=== PATIENT | male | born 1965 | race Caucasian/White ===

== ENCOUNTER → 2019-01-15 | Outpatient (CLI) | payer BC ==
[2019-01-15 08:50] LABS: ALT 35 U/L (21-72); AST 30 U/L (17-59); Albumin 4.3 g/dL (3.5-5.0); Albumin/Globulin Ratio 1.7; Alkaline Phosphatase 49 U/L (38-126); Anion Gap 7 mmol/L; Blood Urea Nitrogen 15 mg/dL (9-20); Calcium 9.2 mg/dL (8.4-10.2); Carbon Dioxide 26 mmol/L (22-30); Chloride 107 mmol/L (98-107); Cholesterol 179 mg/dL (<200); Globulin 2.6 g/dL; Glucose 138 mg/dL (74-99); HDL Cholesterol 76 mg/dL (40-60); LDL Cholesterol,Calculated 91 mg/dL (0-99); Potassium 4.2 mmol/L (3.5-5.1); Sodium 140 mmol/L (137-145); Total Bilirubin 0.5 mg/dL (0.2-1.3); Total Protein 6.9 g/dL (6.3-8.2); Triglycerides 58 mg/dL (<150)
== END ==
LOC: LABWHC1 08:07
PROVIDERS: ATTEND Internal Medicine Endocrinology, Diabetes & Metabolism
DX: E10.65 Type 1 diabetes mellitus with hyperglycemia (principal)
CPT/HCPCS: 36415; 80053; 80061; 82043; 82570; 84443

== ENCOUNTER → 2020-06-26 | Outpatient (CLI) | payer BC ==
[2020-06-26 17:07] LABS: Hemoglobin A1C 7.4 % (4.0-6.0)
[2020-06-26 18:36] LABS: African American GFR (CKD) 97.8 (60.0-200.0); Albumin/Globulin Ratio 1.82 (1.60-3.17); Anion Gap 8.5 mmol/L (4.00-12.00); Carbon Dioxide 24.5 mmol/L (21.6-31.8); Chol/HDL Ratio 2.09; Globulin 2.2 g/dL (1.6-3.3); LDL Cholesterol,Calculated 74.6 mg/dL (0.0-131.0); Non-African American GFR(CKD) 84.4 (60.0-200.0); Potassium 4.9 mmol/L (3.5-5.5); Total Bilirubin 0.4 mg/dL (0.3-1.2); Total Protein 6.2 g/dL (6.2-8.2); VLDL Calculation 11.4 mg/dL (5.00-40.00)
== END | disposition home or self-care (01) ==
LOC: LABWHC1 07:46
PROVIDERS: ATTEND Internal Medicine Endocrinology, Diabetes & Metabolism
DX: E10.65 Type 1 diabetes mellitus with hyperglycemia (principal)
CPT/HCPCS: 36415; 80053; 80061; 82043; 82570; 83036; 84443

== ENCOUNTER → 2022-03-09 | Outpatient (CLI) | payer BC | END | disposition home or self-care (01) | LOC: LABWHC1 07:48 | PROVIDERS: ATTEND Internal Medicine Endocrinology, Diabetes & Metabolism | DX: Z53.9 Procedure and treatment not carried out, unspecified reason (principal) ==

== ENCOUNTER 2022-05-25 09:31 | Emergency (ER) | payer BC ==
[2022-05-25 09:49] VITALS: BP 130/63; PULSE 55; RESP 20; TEMP 98.3
--- NOTE | 2022-05-25 10:29 | XR ---
EXAMINATION TYPE: XR chest 2V DATE OF EXAM: 05/25/2022 COMPARISON: NONE HISTORY: Injury with pain. TECHNIQUE: Frontal and lateral views of the chest are obtained. FINDINGS: There is no focal air space opacity, pleural effusion, or pneumothorax seen. The cardiac silhouette size is within normal limits. The osseous structures are intact. IMPRESSION: No acute process.
[2022-05-25] MEDS ORDERED: IBUPROFEN 800 MG TAB PO STA (11:07)
--- NOTE | 2022-05-25 11:15 | ED ---
General Adult HPI - General Chief complaint: Recheck/Abnormal Lab/Rx Stated complaint: Rib injury Time Seen by Provider: 05/25/22 10:58 Source: patient, RN notes reviewed, old records reviewed Mode of arrival: ambulatory Limitations: no limitations - History of Present Illness Initial comments: This is a well-appearing 57-year-old male that presents ambulatory to the emergency room with right-sided rib pain. Patient was playing tennis yesterday and fell landing on his right arm and right side. Patient states he continues to have pain on the right side today worse with palpation or deep breathing and is concerned for rib fracture. -: days(s) (1) Location: right (ribs) Radiation: non-radiation Severity scale (1-10): 5 Quality: constant Consistency: constant Improves with: immobilization Worsens with: movement Associated Symptoms: denies other symptoms - Related Data Previous Rx's Medication Instructions Recorded Ibuprofen [Motrin] 600 mg PO Q8HR PRN #30 tab 05/25/22 Lidocaine 5% Patch [Lidoderm] 1 patch TOPICAL DAILY 14 Days #14 05/25/22 patch Allergies Allergy/AdvReac Type Severity Reaction Status Date / Time No Known Allergies Allergy Verified 05/25/22 09:49 Review of Systems ROS Statement: Those systems with pertinent positive or pertinent negative responses have been documented in the HPI. ROS Other: All systems not noted in ROS Statement are negative. Past Medical History Past Medical History: Diabetes Mellitus History of Any Multi-Drug Resistant Organisms: None Reported Additional Past Surgical History / Comment(s): Cardiac stent Past Psychological History: No Psychological Hx Reported Smoking Status: Never smoker Past Alcohol Use History: Occasional Past Drug Use History: None Reported General Exam Limitations: no limitations General appearance: alert, in no apparent distress Head exam: Present: atraumatic Eye exam: Present: normal appearance Neck exam: Absent: tenderness, meningismus Respiratory exam: Present: normal lung sounds bilaterally, other (No bruising noted). Absent: respiratory distress, wheezes, rales, rhonchi, stridor, chest wall tenderness, accessory muscle use Cardiovascular Exam: Present: bradycardia GI/Abdominal exam: Present: soft. Absent: distended, tenderness, rigid Extremities exam: Present: normal capillary refill. Absent: pedal edema Back exam: Present: normal inspection, full ROM. Absent: tenderness, CVA tenderness (R), CVA tenderness (L), rash noted Neurological exam: Present: alert, oriented X3, normal gait Psychiatric exam: Present: normal affect, normal mood Skin exam: Present: warm, dry, normal color, abrasion (Abrasion right elbow) Course Vital Signs 05/25/22 09:46 Temperature 98.3 F Pulse Rate 55 L Respiratory 20 Rate Blood Pressure 130/63 O2 Sat by Pulse 97 Oximetry Medical Decision Making - Medical Decision Making Patient fell yesterday while playing tennis complaining of right sided rib. Chest x-ray negative for any acute rib fracture. No acute pulmonary cardiopulmonary process. Lung sounds are clear and oxygenation is 97%. Patient was given Motrin and a prescription for Lidoderm patches as he states he had difficulty sleeping last night. Directed to return to the emergency room with any new or concerning symptoms. Directed to deep breath and cough throughout the day to prevent pneumonia. He is agreeable to this plan of care. Attending is Dr. Khan Disposition Clinical Impression: Contusion of rib on right side, Abrasion Disposition: HOME SELF-CARE Condition: Good Additional Instructions: Take Motrin as needed for pain. You can use Lidoderm patches as prescribed for topical pain relief. Deep breath and cough throughout the day to prevent pneumonia. Follow-up with the primary care doctor next week. Return to the emergency room with any new or concerning symptoms. Prescriptions: Lidocaine 5% Patch [Lidoderm] 1 patch TOPICAL DAILY 14 Days #14 patch Ibuprofen [Motrin] 600 mg PO Q8HR PRN #30 tab PRN Reason: Pain Is patient prescribed a controlled substance at d/c from ED?: No Referrals: None,Stated [Primary Care Provider] - 1-2 days Time of Disposition: 11:15
== END 2022-05-25 11:24 | disposition home or self-care (01) ==
LOC: EC 09:31
DX: S20.211A Contusion of right front wall of thorax, initial encounter (principal); E11.9 Type 2 diabetes mellitus without complications; W21.12XA Struck by tennis racquet, initial encounter; Y93.73 Activity, racquet and hand sports
CPT/HCPCS: 71046; 99283

== ENCOUNTER → 2022-06-07 | Outpatient (CLI) | payer BC ==
[2022-06-07 12:03] LABS: African American GFR (CKD) 96.4 (60.0-200.0); Albumin/Globulin Ratio 1.67 (1.60-3.17); Anion Gap 9.6 mmol/L (10.00-18.00); BUN/Creat Ratio 14.5 Ratio (12.00-20.00); Blood Urea Nitrogen 14.5 mg/dL (9.0-27.0); Calcium 8.9 mg/dL (8.7-10.3); Carbon Dioxide 25.4 mmol/L (20.0-27.5); Globulin 2.4 g/dL (1.6-3.3); Non-African American GFR(CKD) 83.2 (60.0-200.0); Potassium 4.3 mmol/L (3.5-5.5); Total Bilirubin 0.6 mg/dL (0.30-1.20); Total Protein 6.4 g/dL (6.2-8.2)
[2022-06-07 12:04] LABS: HDL Cholesterol 78.4 mg/dL (40.00-60.00); Triglycerides 46.6 mg/dL (0.00-149.00)
[2022-06-07 12:28] LABS: Chol/HDL Ratio 1.79 Ratio
[2022-06-07 13:54] LABS: Microalbumin Creatinine Ratio <30 mg/g Creat (0-30)
== END | disposition home or self-care (01) ==
LOC: LABWHC1 07:27
PROVIDERS: ATTEND Internal Medicine Interventional Cardiology
DX: E10.65 Type 1 diabetes mellitus with hyperglycemia (principal); E78.2 Mixed hyperlipidemia
CPT/HCPCS: 36415; 80053; 80061; 82043; 82570; 83036; 83721; 84443

== ENCOUNTER → 2023-11-17 | Outpatient (CLI) | payer BC ==
[2023-11-17 11:45] LABS: Microalbumin Creatinine Ratio <4 mg/g Cr (0-30)
[2023-11-17 16:09] LABS: ALT 44 U/L (10-49); AST 37 U/L (14-35); Albumin 4.2 g/dL (3.8-4.9); Albumin/Globulin Ratio 1.75 Ratio (1.60-3.17); Alkaline Phosphatase 54 U/L (41-126); Blood Urea Nitrogen 13.9 mg/dL (9.0-27.0); Calcium 9.5 mg/dL (8.7-10.3); Chloride 104 mmol/L (96-109); Chol/HDL Ratio 1.63 Ratio; Globulin 2.4 g/dL (1.6-3.3); Glucose 152 mg/dL (70-110); Potassium 4.4 mmol/L (3.5-5.5); Sodium 141 mmol/L (135-145); Total Bilirubin 0.7 mg/dL (0.3-1.2); Total Protein 6.6 g/dL (6.2-8.2); VLDL Calculation 11.06 mg/dL (5.00-40.00)
== END | disposition home or self-care (01) ==
LOC: LABWHC1 07:21
PROVIDERS: ATTEND Internal Medicine Endocrinology, Diabetes & Metabolism
DX: I10 Essential (primary) hypertension (principal); E10.65 Type 1 diabetes mellitus with hyperglycemia; E78.2 Mixed hyperlipidemia
CPT/HCPCS: 36415; 80053; 80061; 82043; 82570; 83036; 84443

== ENCOUNTER → 2024-08-31 | Outpatient (CLI) | payer BC ==
[2024-08-31 11:07] LABS: ALT 29 U/L (10-49); AST 24 U/L (14-35); Albumin 4.1 g/dL (3.8-4.9); Albumin/Globulin Ratio 1.71 Ratio (1.60-3.17); Alkaline Phosphatase 54 U/L (41-126); BUN/Creat Ratio 16.33 Ratio (12.00-20.00); Blood Urea Nitrogen 14.7 mg/dL (9.0-27.0); Calcium 9.1 mg/dL (8.7-10.3); Carbon Dioxide 27.6 mmol/L (21.6-31.8); Chloride 105 mmol/L (96-109); Chol/HDL Ratio 1.69 Ratio; Globulin 2.4 g/dL (1.6-3.3); Glucose 144 mg/dL (70-110); LDL Cholesterol,Calculated 50.7 mg/dL (0.0-131.0); Microalbumin Creatinine Ratio <9 mg/g Cr (0-30); Potassium 4.9 mmol/L (3.5-5.5); Sodium 141 mmol/L (135-145); Total Bilirubin 0.6 mg/dL (0.3-1.2); Total Protein 6.5 g/dL (6.2-8.2); VLDL Calculation 9.46 mg/dL (5.00-40.00)
== END | disposition home or self-care (01) ==
LOC: LABWHC1 07:14
PROVIDERS: ATTEND Internal Medicine Endocrinology, Diabetes & Metabolism
DX: E10.65 Type 1 diabetes mellitus with hyperglycemia (principal); E78.2 Mixed hyperlipidemia
CPT/HCPCS: 36415; 80053; 80061; 82043; 82570; 83036; 84443

== ENCOUNTER → 2025-03-21 | Outpatient (CLI) | payer BC ==
[2025-03-21 13:30] LABS: ALT 26 U/L (10-49); AST 25 U/L (14-35); Albumin 4.1 g/dL (3.8-4.9); Albumin/Globulin Ratio 1.58 Ratio (1.60-3.17); Alkaline Phosphatase 77 U/L (41-126); Anion Gap 11.00 mmol/L (4.00-12.00); BUN/Creat Ratio 15.00 Ratio (12.00-20.00); Blood Urea Nitrogen 13.5 mg/dL (9.0-27.0); Calcium 9.1 mg/dL (8.7-10.3); Carbon Dioxide 26.0 mmol/L (21.6-31.8); Chloride 103 mmol/L (96-109); Cholesterol 130.00 mg/dL (0.00-200.00); Globulin 2.6 g/dL (1.6-3.3); Glucose 109 mg/dL (70-110); HDL Cholesterol 74.70 mg/dL (40.00-60.00); LDL Cholesterol,Calculated 45.4 mg/dL (0.0-131.0); Potassium 4.6 mmol/L (3.5-5.5); Prostate Specific Antigen 3.86 ng/mL (0.000-3.500); Sodium 140 mmol/L (135-145); Total Protein 6.7 g/dL (6.2-8.2); Triglycerides 49.40 mg/dL (0.00-149.00); VLDL Calculation 9.88 mg/dL (5.00-40.00)
== END | disposition home or self-care (01) ==
LOC: LABWHC1 07:51
PROVIDERS: ATTEND Nurse Practitioner Adult Health
DX: E10.65 Type 1 diabetes mellitus with hyperglycemia (principal); R97.20 Elevated prostate specific antigen [PSA]; I10 Essential (primary) hypertension; E78.2 Mixed hyperlipidemia
CPT/HCPCS: 36415; 80053; 80061; 83036; 84153